=== PATIENT | female | born 1960 | race Caucasian/White ===

== ENCOUNTER 2022-07-29 05:07 | Day surgery (SDC) | payer OTHER ==
[2022-07-23 08:15] VITALS: BMI 24.7
[2022-07-29 12:52] VITALS: TEMP 98
[2022-07-29 13:35] VITALS: BP 102/62; PULSE 69; RESP 18
== END 2022-07-29 13:40 | disposition home or self-care (01) ==
LOC: JASU-ENDO 05:07
PROVIDERS: ATTEND Internal Medicine Gastroenterology
PROC: 0DBH8ZX Excision of Cecum, Via Natural or Artificial Opening Endoscopic, Diagnostic (ICD-10-PCS; principal; 2022-07-29 11:00)
DX: Z12.11 Encounter for screening for malignant neoplasm of colon (principal); K63.5 Polyp of colon; K64.8 Other hemorrhoids; K59.89 Other specified functional intestinal disorders
CPT/HCPCS: 88305-TC

== ENCOUNTER 2023-05-10 12:20 | Inpatient (IN) | payer OTHER ==
[2023-05-10] MEDS ORDERED: SODIUM CHLORIDE 0.9% 1000 ML INFUS.BAG IV ONE ×2 (12:55→13:59)
[2023-05-10] MEDS ORDERED: ONDANSETRON 4 MG/2 ML VIAL IVPUSH ONE (12:55)
[2023-05-10] MEDS ORDERED: FAMOTIDINE 20 MG/50 ML IVPB 20 MG/50 ML MG IVPB ONE ×2 (12:55→12:59)
[2023-05-10] MEDS ORDERED: ACETAMINOPHEN 1000 MG/100 ML BAG IVPB ONE (12:55)
[2023-05-10] MEDS ORDERED: ONDANSETRON 4 MG/2 ML VIAL ONE ×2 (12:59→17:45)
[2023-05-10] MEDS ORDERED: ACETAMINOPHEN INJECTION 100 ML IVPB ONE ×2 (12:59→20:18)
[2023-05-10 13:32] LABS: HEMATOCRIT 48.6 % (32.4-45.2); HEMOGLOBIN 16.4 G/dL (10.7-15.3); MCH 31.7 pg (25.7-33.7); MCHC 33.6 g/dl (32.0-36.0); MEAN CELL VOLUME 94.1 fl (80-96); MEAN PLT VOLUME 8.9 fl (7.5-11.1); PLATELET COUNT 259.3 10^3/uL (134-434); RBC 5.16 10^6/uL (3.60-5.2); RDW 13.5 % (11.6-15.6); WHITE BLOOD COUNT 20.5 10^3/uL (4.0-10.8)
[2023-05-10 13:36] LABS: BLOOD UREA NITROGEN 17.8 mg/dl (7-18); CALCIUM 9.9 mg/dl (8.5-10.1); CREATININE 1.1 mg/dl (0.6-1.3); MAGNESIUM 1.8 mg/dL (1.8-2.4); POTASSIUM 3.6 mmol/L (3.5-5.1); SGOT/AST 16.8 U/L (15-37); TOT PROT 7.8 g/dl (6.4-8.2)
[2023-05-10 13:43] LABS: EPITHELIAL CELLS FEW /hpf
[2023-05-10 13:58] LABS: PLATELET ESTIMATE ADEQUATE
[2023-05-10 14:15] LABS: BILIRUBIN,TOTAL 0.7 mg/dL (0.2-1)
[2023-05-10] MEDS ORDERED: PIPERACILLIN/TAZOB 4.5 GM 4.5 GM in DEXTROSE 5%-WATER 100 ML IVPB ONE (15:35)
[2023-05-10] MEDS ORDERED: PIPERACILLIN/TAZOBACTAM 4.5 GM VIAL IVPB ONE (15:46)
[2023-05-10 15:52] LABS: HEMATOCRIT 44.5 % (32.4-45.2); HEMOGLOBIN 14.9 G/dL (10.7-15.3); MCH 31.7 pg (25.7-33.7); MCHC 33.6 g/dl (32.0-36.0); MEAN CELL VOLUME 94.4 fl (80-96); MEAN PLT VOLUME 8.5 fl (7.5-11.1); RBC 4.71 10^6/uL (3.60-5.2); WHITE BLOOD COUNT 18.2 10^3/uL (4.0-10.8)
[2023-05-10 15:59] LABS: PLATELET ESTIMATE ADEQUATE
[2023-05-10 16:05] LABS: INR 1.13 (0.83-1.09); PROTHROMBIN TIME (PATIENT) 13.1 SEC (9.7-13.0)
[2023-05-10 16:08] LABS: ACTIVATED PTT 34.8 SECONDS (25.2-36.5)
[2023-05-10] MEDS ORDERED: ONDANSETRON 4 MG/2 ML VIAL IVPUSH PRN (17:22)
[2023-05-10] MEDS ORDERED: oxyCODONE HCL 5 MG TABLET PO PRN ×3 (17:22→19:45)
[2023-05-10] MEDS ORDERED: PROMETHAZINE HCL 25 MG/1 ML VIAL IVPB PRN (17:22)
[2023-05-10] MEDS ORDERED: LACTATED RINGERS SOLUTION 1,000 ML IV SCH (17:30)
[2023-05-10] MEDS ORDERED: ROCURONIUM BROMIDE 50 MG/5 ML SYRINGE ONE (17:44)
[2023-05-10] MEDS ORDERED: MIDAZOLAM HCL 2 MG/2 ML SINGLE DOSE VIAL ONE (17:44)
[2023-05-10] MEDS ORDERED: PROPOFOL 20 ML ONE (17:44)
[2023-05-10] MEDS ORDERED: LIDOCAINE HCL/PF 2% SDV 5ML VIAL ONE (17:45)
[2023-05-10] MEDS ORDERED: SUGAMMADEX SODIUM 200 MG/2 ML VIAL ONE (17:45)
[2023-05-10] MEDS ORDERED: DEXAMETHASONE SOD PHOSPHATE 4 MG/1 ML VIAL ONE (17:45)
[2023-05-10] MEDS ORDERED: SEVOFLURANE 250 ML BTL ONE (17:45)
[2023-05-10] MEDS ORDERED: BUPIVACAINE HCL/PF 0.5% (5MG/ML) 10 ML VIAL IJ ONE ×2 (18:22)
[2023-05-10] MEDS ORDERED: ACETAMINOPHEN 1000 MG/100 ML BAG IVPB PRN (20:00)
[2023-05-10] MEDS: ACETAMINOPHEN 1000 MG/100 ML BAG IVPB SCH (20:20)
[2023-05-10] MEDS: LACTATED RINGERS SOLUTION 1,000 ML/1,000 ML INFUS.BAG IV SCH (20:24)
[2023-05-10] MEDS: SODIUM CHLORIDE 1,000 ML IV SCH (23:13)
[2023-05-10 23:25] VITALS: BMI 25.2
[2023-05-10] MEDS: PANTOPRAZOLE SODIUM 40 MG VIAL IVPUSH SCH (23:45)
[2023-05-11] MEDS: ACETAMINOPHEN 1000 MG/100 ML BAG IVPB SCH ×3 (01:23→18:22)
[2023-05-11] MEDS: PANTOPRAZOLE SODIUM 40 MG VIAL IVPUSH SCH (09:53)
[2023-05-11 11:15] LABS: BASO % 0.1 % (0-2.0); HEMATOCRIT 31.8 % (32.4-45.2); HEMOGLOBIN 10.8 GM/dL (10.7-15.3); LYMPH % 7.7 % (8-40); MCH 31.1 pg (25.7-33.7); MCHC 33.8 g/dl (32.0-36.0); MEAN CELL VOLUME 91.8 fl (80-96); MEAN PLT VOLUME 8.2 fl (7.5-11.1); MONO % 7.9 % (3.8-10.2); NEUT % 84.3 % (42.8-82.8); PLATELET COUNT 201 10^3/uL (134-434); RBC 3.46 M/mm3 (3.60-5.2)
[2023-05-11 11:42] LABS: CALCIUM 8.3 mg/dL (8.5-10.1)
[2023-05-11 11:43] LABS: BLOOD UREA NITROGEN 11.4 mg/dL (7-18)
[2023-05-11 11:46] LABS: CREATININE 0.9 mg/dL (0.55-1.3)
[2023-05-11 11:47] LABS: BILIRUBIN,TOTAL 0.7 mg/dL (0.2-1)
[2023-05-11 11:48] LABS: ALBUMIN 3.1 g/dl (3.4-5.0); TOT PROT 5.8 g/dl (6.4-8.2)
[2023-05-11] MEDS: LACTATED RINGERS SOLUTION 1,000 ML/1,000 ML INFUS.BAG IV SCH (12:11)
[2023-05-11 17:56] LABS: EPI CELLS >36 /uL (0-25.1); HYALINE CASTS 5 /uL (0-3.1); URINE APPEARANCE CLEAR; URINE BACTERIA 116 /uL (0-1359); URINE BILIRUBIN NEGATIVE (NEGATIVE); URINE COLOR YELLOW; URINE GLUCOSE (UA) NEGATIVE (NEGATIVE); URINE KETONE NEGATIVE (NEGATIVE); URINE LEUK ESTERASE NEGATIVE (NEGATIVE); URINE NITRITE NEGATIVE (NEGATIVE); URINE PROTEIN 2+ (NEGATIVE); URINE UROBILINOGEN 0.2 mg/dL (0.2-1.0); URINE WBC 27 /uL (0-25.8)
[2023-05-11 17:59] LABS: URINE RBC 42.8 /uL (0-23.9)
[2023-05-11] MEDS: SODIUM CHLORIDE 1,000 ML IV SCH (18:24)
[2023-05-11] MEDS ORDERED: VENLAFAXINE HCL 100 MG TABLET PO SCH (22:14)
[2023-05-12] MEDS: ACETAMINOPHEN 1000 MG/100 ML BAG IVPB SCH ×3 (02:14→17:12)
[2023-05-12] MEDS: LACTATED RINGERS SOLUTION 1,000 ML/1,000 ML INFUS.BAG IV SCH (02:19)
[2023-05-12] MEDS: LEVOTHYROXINE NA 25 MCG TABLET (FP) PO SCH (06:11)
[2023-05-12 07:59] LABS: POTASSIUM 3.7 mmol/L (3.5-5.1)
[2023-05-12 08:01] LABS: CALCIUM 8.5 mg/dL (8.5-10.1)
[2023-05-12 08:02] LABS: ALBUMIN 3.2 g/dl (3.4-5.0); BLOOD UREA NITROGEN 10.8 mg/dL (7-18)
[2023-05-12 08:05] LABS: CREATININE 0.8 mg/dL (0.55-1.3)
[2023-05-12 08:09] LABS: TOT PROT 5.7 g/dl (6.4-8.2)
[2023-05-12 08:13] LABS: BASO % 0.4 % (0-2.0); BILIRUBIN,TOTAL 0.5 mg/dL (0.2-1); EOS % 0.2 % (0-4.5); HEMATOCRIT 30.5 % (32.4-45.2); LYMPH % 19.1 % (8-40); MCH 30.7 pg (25.7-33.7); MCHC 32.8 g/dl (32.0-36.0); MEAN CELL VOLUME 93.7 fl (80-96); MEAN PLT VOLUME 9.1 fl (7.5-11.1); MONO % 8.9 % (3.8-10.2); NEUT % 71.4 % (42.8-82.8); PLATELET COUNT 189 10^3/uL (134-434); RBC 3.26 M/mm3 (3.60-5.2); RDW 12.9 % (11.6-15.6); WHITE BLOOD COUNT 14.4 K/mm3 (4.0-10.0)
[2023-05-12] MEDS: PANTOPRAZOLE SODIUM 40 MG VIAL IVPUSH SCH (10:29)
[2023-05-12 14:55] LABS: N-TERMINAL BNP 1840.9 pg/ml (5-125)
[2023-05-12] MEDS ORDERED: clonazePAM 0.5 MG TABLET PO PRN (19:19)
[2023-05-12] MEDS ORDERED: ROSUVASTATIN CA 40 MG TABLET PO SCH (22:00)
[2023-05-13] MEDS: ACETAMINOPHEN 1000 MG/100 ML BAG IVPB SCH ×2 (03:02→10:52)
[2023-05-13] MEDS: LEVOTHYROXINE NA 25 MCG TABLET (FP) PO SCH (06:55)
[2023-05-13 07:40] LABS: BASO % 0.5 % (0-2.0); EOS % 1.5 % (0-4.5); HEMATOCRIT 29.8 % (32.4-45.2); HEMOGLOBIN 10.5 GM/dL (10.7-15.3); LYMPH % 21.2 % (8-40); MCH 32.1 pg (25.7-33.7); MCHC 35.1 g/dl (32.0-36.0); MEAN CELL VOLUME 91.4 fl (80-96); MEAN PLT VOLUME 8.2 fl (7.5-11.1); MONO % 8.8 % (3.8-10.2); PLATELET COUNT 174 10^3/uL (134-434); RBC 3.26 M/mm3 (3.60-5.2); RDW 12.8 % (11.6-15.6); WHITE BLOOD COUNT 10.3 K/mm3 (4.0-10.0)
[2023-05-13 07:56] LABS: POTASSIUM 4.1 mmol/L (3.5-5.1)
[2023-05-13 07:58] LABS: CALCIUM 8.6 mg/dL (8.5-10.1)
[2023-05-13 07:59] LABS: BLOOD UREA NITROGEN 9.9 mg/dL (7-18)
[2023-05-13 08:01] LABS: CREATININE 0.8 mg/dL (0.55-1.3)
[2023-05-13 08:03] LABS: BILIRUBIN,TOTAL 0.5 mg/dL (0.2-1)
[2023-05-13 08:04] LABS: TOT PROT 5.8 g/dl (6.4-8.2)
[2023-05-13] MEDS ORDERED: ENOXAPARIN NA (PORCINE) 40 MG/0.4 ML DISP.SYRIN SQ SCH (10:00)
[2023-05-13] MEDS ORDERED: POLYETHYLENE GLYCOL (HEALTHYLAX) 3350 17 GM PACKET PO SCH (10:00)
[2023-05-13] MEDS: PANTOPRAZOLE SODIUM 40 MG VIAL IVPUSH SCH (10:53)
[2023-05-13 15:11] VITALS: BP 131/95; PULSE 69; RESP 19; TEMP 98.3
[2023-05-13] MEDS ORDERED: VENLAFAXINE HCL PO SCH (22:00)
[2023-05-13] MEDS ORDERED: APIXABAN 5 MG TABLET PO SCH (22:00)
== END 2023-05-13 17:56 | disposition home or self-care (01) | DRG 225 ==
LOC: FER 12:20 → J8W 19:46 → J4W 05-12 02:42
PROVIDERS: ADMIT Internal Medicine; ATTEND Internal Medicine
PROC: 0DTJ4ZZ Resection of Appendix, Percutaneous Endoscopic Approach (ICD-10-PCS; principal; 2023-05-10 17:30)
PROC: 0DB98ZX Excision of Duodenum, Via Natural or Artificial Opening Endoscopic, Diagnostic (ICD-10-PCS; 2023-05-13)
PROC: 0DB68ZX Excision of Stomach, Via Natural or Artificial Opening Endoscopic, Diagnostic (ICD-10-PCS; 2023-05-13)
PROC: 0DB58ZX Excision of Esophagus, Via Natural or Artificial Opening Endoscopic, Diagnostic (ICD-10-PCS; 2023-05-13)
DX: K35.890 Other acute appendicitis without perforation or gangrene (principal); E78.5 Hyperlipidemia, unspecified; F41.8 Other specified anxiety disorders; N28.0 Ischemia and infarction of kidney; E03.9 Hypothyroidism, unspecified; J32.8 Other chronic sinusitis; D72.829 Elevated white blood cell count, unspecified; R31.29 Other microscopic hematuria; J44.9 Chronic obstructive pulmonary disease, unspecified; R13.10 Dysphagia, unspecified; K63.5 Polyp of colon; D13.1 Benign neoplasm of stomach; K44.9 Diaphragmatic hernia without obstruction or gangrene; K21.00 Gastro-esophageal reflux disease with esophagitis, without bleeding
CPT/HCPCS: 36415; 71046-TC-FY; 74177-TC; 80053; 80061; 81003; 81015; 82570; 83036; 83605; 83735; 83880; 84156; 84443; 85025; 85027; 85300; 85306; 85610; 85730; 86850; 86900; 86901; 87040; 88304-TC; 93005; 93010; 93225; 93226; 93306-TC; 94760; 99285-25; Q9967